=== PATIENT | male | born 1985 | race Hispanic/Latino ===

== ENCOUNTER 2019-08-28 00:32 | Emergency (ER) | payer SELFPAY ==
[2019-08-28 01:09] VITALS: BP 134/71
--- NOTE | 2019-08-28 01:25 | XRay Report ---
RIGHT HAND 3 VIEWS INDICATION / CLINICAL INFORMATION: Slammed right hand in car door with right hand pain. COMPARISON: None available. FINDINGS: BONES / JOINT(S): No acute fracture or subluxation. No significant arthritis. SOFT TISSUES: There is mild soft tissue swelling involving the dorsum of the hand at the metacarpopha langeal joint level. ADDITIONAL FINDINGS: None. Signer Name: Gibran Durham MD Signed: 08/28/2019 1:21 AM Workstation Name: [id number]
--- NOTE | 2019-08-28 01:48 | Emergency Department Report ---
Upper Extremity - HPI Chief Complaint: Extremity Injury, Upper Stated Complaint: HAND INJURY Time Seen by Provider: 08/28/19 01:19 Upper Extremity: Right Hand (Injury with bleeding) Occurred When: Today Mechanism: Other (Slammed in car door) Severity: severe (10/10) Symptoms: Yes Pain with Movement (Right hand), Yes Limited Range of Movement (P ain with range of motion), Yes Swelling (Right hand), Yes Bruising/Ecchymosis (Right hand), Yes Laceration or Abrasion (Right hand), No Deformity, No Numbness, No Weakness Other History: This is a 33-year-old male here reports that he slammed in his hand in car door and now having pain with some bleeding. He said this happened today and pain is 10 out of 10 achy and throbbing. Pain is constant. Denies taking any medication. Denies any numbness tingling edema weakness to hand. Tetanus vaccine is up-to-date and he said he does not want a tetanus shot. Patient appears to be verbally abrasive and aggressive to staff and myself. ED Review of Systems ROS: Stated complaint: HAND INJURY Other details as noted in HPI Constitutional: denies: chills, fever Respiratory: denies: cough, shortness of breath, wheezing Cardiovascular: denies: chest pain, palpitations Gastrointestinal: denies: abdominal pain, nausea, vomiting Musculoskeletal: joint swelling, arthralgia. denies: back pain, myalgia Skin: other (Cut to hand per patient) Neurological: denies: headache, numbness, paresthesias ED Past Medical Hx - Past Medical History Previous Medical History?: No - Surgical History Past Surgical History?: No - Family History Family history: no significant - Social History Smoking Status: Never Smoker Substance Use Type: None Upper Extremity Exam - Exam General: Vital signs noted. No distress. Alert and acting appropriately. This is a 33-year-old male well-nourished well-developed. Patient is uncooperative and aggressive Patient refused examination especially if his injured hand. Hand: Yes Normal ROM in Digit(s) (Patient report pain with movement of hand), No Hand Deformity, No Digit Tenderness (Denies any pain with movement of fingers), No Digit(s) Deformity CMS Exam: Yes Broken Skin Hand L/R Back: 1 - Noted bleeding to dorsum of right hand but patient refused examination. ED Course Vital Signs 08/28/19 00:47 Temperature 98.2 F Pulse Rate 70 Respiratory 20 Rate Blood Pressure 134/71 O2 Sat by Pulse 100 Oximetry - Reevaluation(s) Reevaluation #1: 08/28/19 01:48 This is a 33-year-old male here for injury to right hand after accidentally having car door slammed that hand. He has some bleeding. X-ray shows no acute fracture dislocation but shows soft tissue swelling. I communicated this with patient and he got upset and said his hand is broken and he wants pain medication now. Patient refused from showing me head injury. He became very aggressive in room and walked out and refused tetanus vaccine. Patient refused treatment and started using his phone to the point in my face. He left room and this was witnessed by nursing staff. Charge nurse is aware and patient left after being seen but before being treated 08/28/19 01:54 ED Medical Decision Making - Radiology Data Radiology results: report reviewed X-ray of right hand dictated by radiologist and report reviewed by myself. Please see details below Findings [facility] [address] [place] [address] XRay Report Signed Patient: KACIE BOWMAN MR#: [id number] : 1985 Acct:[id number] Age/Sex: 33 / M ADM Date: 08/28/19 Loc: ED Attending Dr: Ordering Physician: ZELALEM THOMAS MD Date of Service: 08/28/19 Procedure(s): XR hand 3+V RT Accession Number(s): [id number] cc: ZELALEM THOMAS MD Fluoro Time In Minutes: RIGHT HAND 3 VIEWS INDICATION / CLINICAL INFORMATION: Slammed right hand in car door with right hand pain. COMPARISON: None available. FINDINGS: BONES / JOINT(S): No acute fracture or subluxation. No significant arthritis. SOFT TISSUES: There is mild soft tissue swelling involving the dorsum of the hand at the metacarpophalangeal joint level. ADDITIONAL FINDINGS: None. Signer Name: Gibran Durham MD Signed: 08/28/2019 1:21 AM Workstation Name: [id number] Transcribed By: RT Dictated By: Gibran Durham MD Electronically Authenticated By: Gibran Durham MD Signed Date/Time: 08/28/19120 DD/ 9 TD/TT: - Medical Decision Making This is a 33-year-old male who came to the emergency room after injury to right hand. He was placed in room and left and went outside to smoke and was retrieve d by staff. It was related to me that patient is verbally aggressive and threatening. He had x-ray done which shows no acute fracture or dislocation. I relayed this to the patient and he disagreed will radiologist report. Patient also refused examination by myself. I noted that he had some dried blood to the dorsum aspect of right hand and he said it was painful but he would not let me touch his hand or examine his hand. Patient later became aggressive and pointing phone to the back of my head and frontally. He is uncooperative and eventually he left before treatment. - Differential Diagnosis Fracture versus dislocation, contusion, MSK pain Critical care attestation.: If time is entered above; I have spent that time in minutes in the direct care of this critically ill patient, excluding procedure time. ED Disposition Clinical Impression: Left before treatment completed Injury of right hand Qualifiers: Encounter type: initial encounter Qualified Code(s): S69.91XA - Unspecified injury of right wrist, hand and finger(s), initial encounter Disposition: Z-07 ELOPED Is pt being admited?: No Does the pt Need Aspirin: No Condition: Stable Referrals: PRIMARY CARE, [Primary Care Provider] - 3-5 Days
== END 2019-08-28 01:45 | disposition left against medical advice (07) ==
LOC: ED 00:32
DX: S69.91XA Unspecified injury of right wrist, hand and finger(s), initial encounter (principal); W22.8XXA Striking against or struck by other objects, initial encounter; Y93.89 Activity, other specified; Y92.89 Other specified places as the place of occurrence of the external cause; Y99.8 Other external cause status
CPT/HCPCS: 99284